=== PATIENT | male | born 1990 | race African-American/Black ===

== ENCOUNTER 2018-12-21 19:29 | Emergency (ER) | payer MEDICAID, OTHER ==
[~2018-12-21] VITALS: Ht 185.4 cm; Wt 92.7 kg
[2018-12-21 19:35] VITALS: BP 144/99
--- NOTE | 2018-12-21 19:42 | NUR ---
PT AMBULATED BACK TO LOBBY A/W AVAILABLE BED.
--- NOTE | 2018-12-21 21:08 | NUR ---
DR. DUARTE BEDSIDE EVALUATING PT
== END 2018-12-21 21:14 | disposition home or self-care (01) ==
LOC: MED 19:29
DX: H65.191 Other acute nonsuppurative otitis media, right ear (principal); F12.10 Cannabis abuse, uncomplicated
CPT/HCPCS: 99283

== ENCOUNTER 2019-03-03 18:10 | Emergency (ER) | payer OTHER ==
[~2019-03-03] VITALS: Ht 185.4 cm; Wt 94.8 kg
[2019-03-03 18:25] VITALS: BP 143/81
[2019-03-03] MEDS ORDERED: SILVER SULFADIAZINE 1% 50 GM JAR TP ONE ×2 (18:43→18:50)
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
[2019-03-03] MEDS ORDERED: MORPHINE SULFATE 4 MG/ML SYR IM ONE (18:50)
[2019-03-03 19:14] VITALS: BP 143/81
--- NOTE | 2019-03-03 19:14 | NUR ---
Patient discharged with v/s stable. Written and verbal after care instructions given and explained. Patient alert, oriented and verbalized understanding of instructions. Ambulatory with steady gait. All questions addressed prior to discharge. ID band removed. Patient advised to follow up with PMD. Rx of KEFLEX, NAPROSYN given. Patient educated on indication of medication including possible reaction and side effects. Opportunity to ask questions provided and answered. PT INSTRUCTED TO WAIT IN LOBBY FOR 15 MINUTES BEFORE LEAVING.
[2019-03-03] MEDS ORDERED: DIVA250T PO (19:16)
[2019-03-03] MEDS ORDERED: QUET200T4 PO (19:16)
== END 2019-03-03 19:14 | disposition home or self-care (01) ==
LOC: MED 18:10
DX: T22.20XA Burn of second degree of shoulder and upper limb, except wrist and hand, unspecified site, initial encounter (principal); T31.0 Burns involving less than 10% of body surface; X08.8XXA Exposure to other specified smoke, fire and flames, initial encounter; Y93.89 Activity, other specified; Y92.89 Other specified places as the place of occurrence of the external cause; Y99.8 Other external cause status
CPT/HCPCS: 16020; 90471; 90715; 96372; 99284; J2270

== ENCOUNTER 2023-01-24 18:54 | Emergency (ER) | payer OTHER ==
[~2023-01-24] VITALS: Ht 185.4 cm; Wt 98.9 kg
[~2023-01-24 18:54] MED LIST: DIVA250T PO; QUET200T4 PO
[2023-01-24 19:50] VITALS: BP 140/92; PULSE 60; RESP 15; TEMP 97.6; O2SAT 100
== END 2023-01-24 21:31 | disposition left against medical advice (07) ==
LOC: MED 18:54
DX: M25.561 Pain in right knee (principal); Z53.21 Procedure and treatment not carried out due to patient leaving prior to being seen by health care provider
CPT/HCPCS: 99281

== ENCOUNTER 2023-02-24 08:25 | Emergency (ER) | payer OTHER ==
[~2023-02-24] VITALS: Ht 185.4 cm; Wt 98.9 kg
[2023-02-24 09:07] VITALS: BP 131/80; PULSE 61; RESP 18; TEMP 98.9; O2SAT 97
== END 2023-02-24 10:37 | disposition left against medical advice (07) ==
LOC: MED 08:25
DX: M25.561 Pain in right knee (principal); Z53.21 Procedure and treatment not carried out due to patient leaving prior to being seen by health care provider
CPT/HCPCS: 99281